=== PATIENT | male | born 1965 | race African-American/Black ===

== ENCOUNTER 2022-03-23 15:45 | Emergency (ER) | payer OTHER, SELFPAY ==
[2022-03-23 15:59] VITALS: BP 145/76; PULSE 91; RESP 18; TEMP 36.8; O2SAT 99; BMI 27.3
--- NOTE | 2022-03-23 16:04 | ED.MALEGU ---
HPI - Male Genitourinary General Stated complaint: excessive urination,bloody Source: patient and family Mode of arrival: ambulatory History of Present Illness HPI Narrative: 56 yo male with PMH of DM presents to the ED with increased urination Related Data Allergies Allergy/AdvReac Type Severity Reaction Status Date / Time lactose [LACTOSE] Allergy Severe BLOATING, Unverified 01/17/20 17:13 GAS
--- NOTE | 2022-03-23 16:16 | ED.GENADULT ---
HPI - General Adult General Chief complaint: General Medical Stated complaint: excessive urination,bloody Time Seen by Provider: 03/23/22 17:39 Related Data Previous Rx's Medication Instructions Recorded levofloxacin 500 mg tablet 500 mg PO ONCE #3 tabs 04/27/22 tamsulosin 0.4 mg capsule (Flomax) 0.4 mg PO BEDTIME 90 days #90 caps 04/27/22 amoxicillin 875 mg-potassium 1 tab PO BID 5 days #10 tabs 04/28/22 clavulanate 125 mg tablet Allergies Allergy/AdvReac Type Severity Reaction Status Date / Time lactose [LACTOSE] Allergy Severe BLOATING, Verified 04/27/22 11:34 GAS [facility] Past Medical History Medical History (Updated 04/27/22 @ 19:53 by MICHELLE Dominguez) DM type 2 (diabetes mellitus, type 2) Nocturia Nocturia associated with benign prostatic hyperplasia Physical Exam ED Vital Signs: Vital Signs - 24 hr 03/23/22 15:59 Temperature 98.2 F Pulse Rate 91 Respiratory Rate 18 Blood Pressure 145/76 H Pulse Oximetry 99 Oxygen Delivery Method Room Air BMI result Body Mass Index 27.3 Course Reevaluation(s) Reevaluation #1: 56 yo male with NIDDM presents c/o urinary frequency x several weeks. Concerned about his prostate. Labs ordered including PSA (patient request) Time: 16:17 Medical Decision Making Lab Data 03/23/22 16:17 03/23/22 16:17 Labs: Lab Results 03/23/22 03/23/22 03/23/22 Range/Units 16:06 16:17 16:17 WBC 4.9 (4.8-10.8) X10*3/uL RBC 5.47 (4.60-5.80) X10*6/uL Hgb 12.4 L (14.0-18.0) g/dl Hct 41.1 L (42.0-52.0) % MCV 75.1 L (80.0-98.0) fL MCH 22.7 L (27.0-33.0) pg MCHC 30.2 L (31.0-36.0) g/dl RDW 13.9 (11.0-16.0) % Plt Count 245 (160-400) X10*3/uL MPV 10.2 (9.4-12.4) fL Immature Gran % (Auto) 0.2 (0.0-0.4) % Neut % (Auto) 50.5 (45-73) % Lymph % (Auto) 39.6 (20-40) % [place] % (Auto) 7.7 (2-11) % Eos % (Auto) 1.4 (0-4) % Baso % (Auto) 0.6 (0-2) % Lymph # (Auto) 2.0 (1.2-4.9) X10*3/uL [place] # (Auto) 0.4 (0.1-1.2) X10*3/uL Eos # (Auto) 0.1 (0.0-0.4) X10*3/uL Baso # (Auto) 0.0 (0.0-0.2) X10*3/uL Abs Immat Gran (auto) 0.01 (0.00-0.03) X10*3/uL Absolute Neuts (auto) 2.5 (2.0-8.3) x10*3/uL Absolute Nucleated RBC 0.000 (0.0-0.012) X10*3/uL Nucleated RBC % (auto) 0.0 (0.0-0.2) /100WBC Sodium 140 (135-145) mmol/L Potassium 4.2 (3.3-5.1) mmol/L Chloride 104 (96-108) mmol/L Carbon Dioxide 29 (22-29) mmol/L Anion Gap 11 L (12-20) BUN 15 (9-16) mg/dL Creatinine 1.33 (0.5-1.4) mg/dL Estim Creat Clear Calc 64.4 Estimated GFR 55 POC Glucose 196 H (60-115) mg/dL Random Glucose 187 H (60-115) mg/dL Calcium 9.0 (8.4-10.2) mg/dL Prostate Specific Ag (<0.05-4.0) ng/mL Urine Color Urine Appearance Urine pH (5.0-9.0) Ur Specific [place] (1.005-1.025) Urine Protein (Neg-Trace) mg/dL Urine Glucose (UA) (Negative) mg/dL Urine Ketones (Negative) mg/dL Urine Blood (Negative) Urine Nitrite (Negative) Ur Leukocyte Esterase (Negative) 03/23/22 03/23/22 Range/Units 16:17 17:12 WBC (4.8-10.8) X10*3/uL RBC (4.60-5.80) X10*6/uL Hgb (14.0-18.0) g/dl Hct (42.0-52.0) % MCV (80.0-98.0) fL MCH (27.0-33.0) pg MCHC (31.0-36.0) g/dl RDW (11.0-16.0) % Plt Count (160-400) X10*3/uL MPV (9.4-12.4) fL Immature Gran % (Auto) (0.0-0.4) % Neut % (Auto) (45-73) % Lymph % (Auto) (20-40) % [place] % (Auto) (2-11) % Eos % (Auto) (0-4) % Baso % (Auto) (0-2) % Lymph # (Auto) (1.2-4.9) X10*3/uL [place] # (Auto) (0.1-1.2) X10*3/uL Eos # (Auto) (0.0-0.4) X10*3/uL Baso # (Auto) (0.0-0.2) X10*3/uL Abs Immat Gran (auto) (0.00-0.03) X10*3/uL Absolute Neuts (auto) (2.0-8.3) x10*3/uL Absolute Nucleated RBC (0.0-0.012) X10*3/uL Nucleated RBC % (auto) (0.0-0.2) /100WBC Sodium (135-145) mmol/L Potassium (3.3-5.1) mmol/L Chloride (96-108) mmol/L Carbon Dioxide (22-29) mmol/L Anion Gap (12-20) BUN (9-16) mg/dL Creatinine (0.5-1.4) mg/dL Estim Creat Clear Calc Estimated GFR POC Glucose (60-115) mg/dL Random Glucose (60-115) mg/dL Calcium (8.4-10.2) mg/dL Prostate Specific Ag 4.89 H (<0.05-4.0) ng/mL Urine Color Yellow Urine Appearance Clear Urine pH 6.0 (5.0-9.0) Ur Specific [place] 1.015 (1.005-1.025) Urine Protein Negative (Neg-Trace) mg/dL Urine Glucose (UA) 500 H (Negative) mg/dL Urine Ketones Negative (Negative) mg/dL Urine Blood Negative (Negative) Urine Nitrite Negative (Negative) Ur Leukocyte Esterase Negative (Negative) Discharge Plan Discharge Clinical Impression: Increased urinary frequency Patient Disposition: Home, Self-Care Instructions: Urinary Urgency and Frequency (DC) Additional Instructions: Please follow-up with urology take Flomax as directed return if you worse Prescriptions: No Action amoxicillin-pot clavulanate 875-125 mg tablet 1 tab PO BID 5 Days Qty: 10 0RF levofloxacin 500 mg tablet 500 mg PO ONCE Qty: 3 0RF Rx Instructions: Take day before, day of, and day after procedure tamsulosin [Flomax] 0.4 mg capsule 0.4 mg PO BEDTIME 90 Days Qty: 90 0RF Referrals: Josiah Fajardo MD [Physician] - 2 days Interventions: ED Discharge Assessment Last Done: 03/23/22 18:11 Discharge Date/Time: 03/23/22 18:14
[2022-03-23 16:23] LABS: Glucose, Whole Blood 196 mg/dL (60-115)
[2022-03-23 16:24] LABS: MANUAL DIFF FLAG NO
[2022-03-23 16:25] LABS: Basophils Percent Auto 0.6 % (0-2); Eosinophils Absolute Auto 0.1 X10*3/uL (0.0-0.4); Eosinophils Percent Auto 1.4 % (0-4); Hematocrit 41.1 % (42.0-52.0); Hemoglobin 12.4 g/dl (14.0-18.0); Imm Gran Abs Auto 0.01 X10*3/uL (0.00-0.03); Imm Gran Pct Auto 0.2 % (0.0-0.4); Lymphocytes Percent Auto 39.6 % (20-40); Mean Corpuscular HGB Conc 30.2 g/dl (31.0-36.0); Mean Corpuscular Hemoglobin 22.7 pg (27.0-33.0); Mean Corpuscular Volume 75.1 fL (80.0-98.0); Mean Platelet Volume 10.2 fL (9.4-12.4); Monocytes Absolute Auto 0.4 X10*3/uL (0.1-1.2); Monocytes Percent Auto 7.7 % (2-11); Neutrophils Absolute Auto 2.5 x10*3/uL (2.0-8.3); Neutrophils Percent Auto 50.5 % (45-73); Platelet Count 245 X10*3/uL (160-400); Red Blood Count 5.47 X10*6/uL (4.60-5.80); Red Cell Distribution Width 13.9 % (11.0-16.0); White Blood Count 4.9 X10*3/uL (4.8-10.8)
[2022-03-23 16:40] LABS: Anion Gap 11 (12-20); Blood Urea Nitrogen 15 mg/dL (9-16); Carbon Dioxide 29 mmol/L (22-29); Chloride 104 mmol/L (96-108); Creatinine Clr Calc Pharmacy 64.4; Estimated Glomerular Filt Rate 55; Glucose Random 187 mg/dL (60-115); Potassium 4.2 mmol/L (3.3-5.1); Sodium 140 mmol/L (135-145)
[2022-03-23 17:02] LABS: Prostate Specific Antigen 4.89 ng/mL (<0.05-4.0)
[2022-03-23 17:30] LABS: Appearance Urine Clear; Color Urine Yellow; Glucose Urine UA 500 mg/dL (Negative); Leukocyte Esterase Urine Negative (Negative); Nitrite Urine Negative (Negative); Specific Gravity - Urine 1.015 (1.005-1.025); Urine Blood Negative (Negative); Urine Ketones Negative (Negative); Urine Protein Negative (Neg-Trace)
--- NOTE | 2022-03-23 17:46 | ED.GENADULT ---
HPI - General Adult General Chief complaint: General Medical Stated complaint: excessive urination,bloody Time Seen by Provider: 03/23/22 17:39 Source: patient Mode of arrival: ambulatory Limitations: no limitations History of Present Illness HPI narrative: This is very pleasant 56 years old man presented to the emergency department complaining of frequency dysuria which has been going on for at least 2 weeks denies any fever chills abdominal pain he he has history of diabetes Onset (ago): week(s) (2) Radiation: non-radiation Severity: mild Pain Consistency: constant Relieving factors: none Exacerbating factors: none Related Data Previous Rx's Medication Instructions Recorded tamsulosin 0.4 mg capsule (Flomax) 0.4 mg PO BEDTIME #14 caps 03/23/22 Allergies Allergy/AdvReac Type Severity Reaction Status Date / Time lactose [LACTOSE] Allergy Severe BLOATING, Unverified 01/17/20 17:13 GAS Review of Systems Review of Systems: Yes all other systems are reviewed and are negative Cardiovascular: Cardiovascular: Reports no additional cardiovascular complaints Genitourinary: Genitourinary: Reports as per HPI and Reports nocturia [facility] Past Medical History [facility] Narrative: Type 2 diabetes Social History Social History Advance Directives: No Advance Directives Information Provided: No Physical Exam ED Vital Signs: Vital Signs - 24 hr 03/23/22 15:59 Temperature 98.2 F Pulse Rate 91 Respiratory Rate 18 Blood Pressure 145/76 H Pulse Oximetry 99 Oxygen Delivery Method Room Air BMI result Body Mass Index 27.3 Const Other: He looks well is no toxic-appearing General: cooperative, healthy appearing, comfortable, no acute distress, well developed, alert, awake and Physically active Nutritional Appearance: average body habitus and well nourished Orientation/consciousness: patient oriented x3 Limitations: no limitations HENMT Head: Yes normal to inspection Ears: external ears normal Face and sinus: Yes normal facial exam Mouth: Normal oral and palatal mucosa present Throat: Yes posterior oropharynx normal Neck Neck: Yes normal visual inspection and Yes full ROM Resp Effort & Inspection: normal respiratory effort Auscultation: clear to auscultation bilaterally Cardio Jugular venous distension: no JVD Rate: regular rate Rhythm: regular rhythm GI Inspection: Yes normal to inspection Palpation (GI): Soft to palpation, not firm and nontender Skin General skin exam: no rashes or lesions noted and elasticity normal Lesions: no lesions Rashes: no rashes Wounds: no wounds Neuro General: patient oriented x3 and gait normal Cranial nerves: Yes CN's II-XII intact bilaterally Medical Decision Making MDM Narrative Medical decision making narrative: This patient most likely has BPH, UA shows no infection no blood in the urine white count is normal renal function test is normal a start this patient on Flomax a referred the patient to Urology Lab Data Result diagrams: 03/23/22 16:17 03/23/22 16:17 Labs: Lab Results 03/23/22 03/23/22 03/23/22 Range/Units 16:06 16:17 16:17 WBC 4.9 (4.8-10.8) X10*3/uL RBC 5.47 (4.60-5.80) X10*6/uL Hgb 12.4 L (14.0-18.0) g/dl Hct 41.1 L (42.0-52.0) % MCV 75.1 L (80.0-98.0) fL MCH 22.7 L (27.0-33.0) pg MCHC 30.2 L (31.0-36.0) g/dl RDW 13.9 (11.0-16.0) % Plt Count 245 (160-400) X10*3/uL MPV 10.2 (9.4-12.4) fL Immature Gran % (Auto) 0.2 (0.0-0.4) % Neut % (Auto) 50.5 (45-73) % Lymph % (Auto) 39.6 (20-40) % [place] % (Auto) 7.7 (2-11) % Eos % (Auto) 1.4 (0-4) % Baso % (Auto) 0.6 (0-2) % Lymph # (Auto) 2.0 (1.2-4.9) X10*3/uL [place] # (Auto) 0.4 (0.1-1.2) X10*3/uL Eos # (Auto) 0.1 (0.0-0.4) X10*3/uL Baso # (Auto) 0.0 (0.0-0.2) X10*3/uL Abs Immat Gran (auto) 0.01 (0.00-0.03) X10*3/uL Absolute Neuts (auto) 2.5 (2.0-8.3) x10*3/uL Absolute Nucleated RBC 0.000 (0.0-0.012) X10*3/uL Nucleated RBC % (auto) 0.0 (0.0-0.2) /100WBC Sodium 140 (135-145) mmol/L Potassium 4.2 (3.3-5.1) mmol/L Chloride 104 (96-108) mmol/L Carbon Dioxide 29 (22-29) mmol/L Anion Gap 11 L (12-20) BUN 15 (9-16) mg/dL Creatinine 1.33 (0.5-1.4) mg/dL Estim Creat Clear Calc 64.4 Estimated GFR 55 POC Glucose 196 H (60-115) mg/dL Random Glucose 187 H (60-115) mg/dL Calcium 9.0 (8.4-10.2) mg/dL Prostate Specific Ag (<0.05-4.0) ng/mL Urine Color Urine Appearance Urine pH (5.0-9.0) Ur Specific [place] (1.005-1.025) Urine Protein (Neg-Trace) mg/dL Urine Glucose (UA) (Negative) mg/dL Urine Ketones (Negative) mg/dL Urine Blood (Negative) Urine Nitrite (Negative) Ur Leukocyte Esterase (Negative) 03/23/22 03/23/22 Range/Units 16:17 17:12 WBC (4.8-10.8) X10*3/uL RBC (4.60-5.80) X10*6/uL Hgb (14.0-18.0) g/dl Hct (42.0-52.0) % MCV (80.0-98.0) fL MCH (27.0-33.0) pg MCHC (31.0-36.0) g/dl RDW (11.0-16.0) % Plt Count (160-400) X10*3/uL MPV (9.4-12.4) fL Immature Gran % (Auto) (0.0-0.4) % Neut % (Auto) (45-73) % Lymph % (Auto) (20-40) % [place] % (Auto) (2-11) % Eos % (Auto) (0-4) % Baso % (Auto) (0-2) % Lymph # (Auto) (1.2-4.9) X10*3/uL [place] # (Auto) (0.1-1.2) X10*3/uL Eos # (Auto) (0.0-0.4) X10*3/uL Baso # (Auto) (0.0-0.2) X10*3/uL Abs Immat Gran (auto) (0.00-0.03) X10*3/uL Absolute Neuts (auto) (2.0-8.3) x10*3/uL Absolute Nucleated RBC (0.0-0.012) X10*3/uL Nucleated RBC % (auto) (0.0-0.2) /100WBC Sodium (135-145) mmol/L Potassium (3.3-5.1) mmol/L Chloride (96-108) mmol/L Carbon Dioxide (22-29) mmol/L Anion Gap (12-20) BUN (9-16) mg/dL Creatinine (0.5-1.4) mg/dL Estim Creat Clear Calc Estimated GFR POC Glucose (60-115) mg/dL Random Glucose (60-115) mg/dL Calcium (8.4-10.2) mg/dL Prostate Specific Ag 4.89 H (<0.05-4.0) ng/mL Urine Color Yellow Urine Appearance Clear Urine pH 6.0 (5.0-9.0) Ur Specific [place] 1.015 (1.005-1.025) Urine Protein Negative (Neg-Trace) mg/dL Urine Glucose (UA) 500 H (Negative) mg/dL Urine Ketones Negative (Negative) mg/dL Urine Blood Negative (Negative) Urine Nitrite Negative (Negative) Ur Leukocyte Esterase Negative (Negative) Discharge Plan Discharge Clinical Impression: Increased urinary frequency Patient Disposition: Home, Self-Care Instructions: Urinary Urgency and Frequency (DC) Additional Instructions: Please follow-up with urology take Flomax as directed return if you worse Prescriptions: New tamsulosin [Flomax] 0.4 mg capsule 0.4 mg PO BEDTIME Qty: 14 0RF Referrals: Josiah Fajardo MD [Physician] - 2 days Interventions: ED Discharge Assessment Last Done: 03/23/22 18:11 Discharge Date/Time: 03/23/22 18:14
== END 2022-03-23 18:14 | disposition home or self-care (01) ==
PROVIDERS: Emergency Medicine; Emergency Provider Emergency Medicine
DX: R35.0 Frequency of micturition (principal); Z79.899 Other long term (current) drug therapy
CPT/HCPCS: 36415; 80048; 81003; 82947; 84153; 85025; 99283

== ENCOUNTER 2022-04-27 11:30 | Outpatient (REF) | payer OTHER, SELFPAY | END 2022-04-27 11:31 | disposition home or self-care (01) | LOC: HO.LAB 11:30 | PROVIDERS: Visit Provider Nurse Practitioner Family | DX: R35.1 Nocturia (principal); R97.20 Elevated prostate specific antigen [PSA] | CPT/HCPCS: 51798 ==

== ENCOUNTER 2022-04-27 13:19 | Outpatient (REF) | payer OTHER, SELFPAY ==
[2022-04-27 13:50] LABS: Urine Cytology See Pathology rpt
[2022-04-27 15:49] LABS: PSA,Total (Free>4and<10) 4.08 ng/mL (0.00-4.00)
[2022-04-29 13:24] LABS: Free Prostate Spec Ag 0.7 ng/mL; Percent Free Prostate Spec Ag 21 % (calc) (>25); Prostate Specific Ag Total 3.3 ng/mL (< OR = 4.0)
== END 2022-04-27 13:20 | disposition home or self-care (01) ==
LOC: HO.10HDL 13:19
PROVIDERS: Visit Provider Nurse Practitioner Family
DX: Z12.5 Encounter for screening for malignant neoplasm of prostate (principal); R97.20 Elevated prostate specific antigen [PSA]; R31.29 Other microscopic hematuria; N39.0 Urinary tract infection, site not specified
CPT/HCPCS: 36415; 84153; 84154; 87086; 87147; 88112

== ENCOUNTER → 2022-06-24 11:31 | Outpatient (BNVA) | payer OTHER, SELFPAY | PROVIDERS: Visit Provider Urology | DX: Z13.89 Encounter for screening for other disorder (principal) ==

== ENCOUNTER 2023-04-19 09:45 | Outpatient (REF) | payer OTHER, SELFPAY ==
[2023-04-19 11:35] LABS: PSA,Total (Free>4and<10) 3.23 ng/mL (0.00-4.00)
== END 2023-04-19 09:46 | disposition home or self-care (01) ==
LOC: HO.LAB 09:45
PROVIDERS: PCP Internal Medicine; Visit Provider Nurse Practitioner Family
DX: Z12.5 Encounter for screening for malignant neoplasm of prostate (principal); R97.20 Elevated prostate specific antigen [PSA]
CPT/HCPCS: 36415; 84153

== ENCOUNTER 2023-04-28 10:22 | Outpatient (AMB) | payer OTHER, SELFPAY ==
--- NOTE | 2023-04-28 10:28 | A.OFFVIS_ITS ---
Intake Intake Visit Reasons: follow up/ PSA Intake Note: Patient is present for follow up urgency/nocturia/elevated psa Urology Medication: Tamsulosin, finasteride Blood Thinner: none PVR: 69ml's Red Lead Burner Required: No Accompanied by: Spouse Allergies lactose [LACTOSE] Allergy (Severe, Verified 04/28/23 18:32) BLOATING, GAS Medication List - Last Reconciled 04/28/23 by MICHELLE Dominguez finasteride 5 mg PO DAILY 90 days tamsulosin (Flomax) 0.4 mg PO BEDTIME 90 days HPI HPI Comments History of Present Illness Details Benito is a pleasant 57-year-old male patient who was accompanied by his at today's visit. He has a past medical history of type 2 diabetes. He presents to the office today for follow-up of his elevated PSA. In discussion with the patient today he reports since his last office visit here approximately 1 year ago he had been following up with a different urologist for a 2nd opinion and for insurance purposes. He reports having had prostate biopsy with Dr. Gambino that was negative and has since been on finasteride and Flomax for his BPH. He discusses noting lower urinary tract symptoms to be present if he misses a dose of his Flomax. He reports noting urinary urgency, frequency, and nocturia. He currently denies any bothersome urinary issues or concerns. PSAs are as follows 03/23--4.9 04/22--4.1 % free PSA 21% 04/23--3.2 Discussed at length potential causes for elevated PSA. Will obtain retroperitoneal ultrasound for further assessment evaluation. In office urinalysis results reviewed with the patient today. PVR 69ml's. JOHN offered however deferred. [facility] Medical History Nocturia Nocturia associated with benign prostatic hyperplasia DM type 2 (diabetes mellitus, type 2) Review of Systems Const All systems reviewed & are unremarkable except as noted in HPI and below Reports no additional complaints Eyes Reports no additional complaints ENT Reports no additional complaints Card Reports no additional complaints Resp Reports no additional complaints GI Reports no additional complaints Reports as per HPI Musc Reports no additional complaints Neuro Reports no additional complaints Psych Reports no additional complaints Endo Reports as per HPI Physical Exam Const General: cooperative, healthy appearing, comfortable, no acute distress, well developed, alert and awake Nutritional Appearance: well nourished Orientation/consciousness: patient oriented x3 Limitations: no limitations HEENT Head: Yes normal to inspection, Yes normocephalic and Yes atraumatic Ears: hearing grossly normal bilaterally Neck Neck: Yes normal visual inspection and Yes trachea midline Chest Chest palpation & inspection: normal inspection of the chest Resp Effort & Inspection: normal respiratory effort and able to speak in complete sentences Cardio Rate: regular rate GI Inspection: Yes normal to inspection General: Yes no CVA tenderness and Yes other (JOHN exam performed prostate firm ) Back/Spine/Pelvis Back: no CVA tenderness Neuro General: patient oriented x3 Psych Appearance: grossly normal and well kempt Mental Status: mental status grossly normal Speech and movement: Normal speech and movement present and Clear speech present Affect: normal affect Attitude: cooperative Thought process: Normal thought process present Thought content: Normal thought content present Insight: Fair insight present (Psych) Judgement: Fair judgement present (Psych) Office Procedures Post Void Residual Post Residual Void Post Void Residual (PVR): 69 [id number] Void Residual by ultrasound Results AMB Urinalysis, Automated UA Leukoctes 0 Levy/uL Last Edit by [facility] on 04/28/23 11:02 UA Nitrite Negative Last Edit by [facility] on 04/28/23 11:02 UA Urobilinogen 0.2 mg/dL Last Edit by [facility] on 04/28/23 11:02 UA Protein 15 mg/dL Last Edit by [facility] on 04/28/23 11:02 UA pH 7.0 Last Edit by [facility] on 04/28/23 11:02 UA Blood 0 Tim/uL Last Edit by [facility] on 04/28/23 11:02 UA Specific [place] 1.015 Last Edit by [facility] on 04/28/23 11:02 UA Ketone Negative Last Edit by [facility] on 04/28/23 11:02 UA Bilirubin 0 mg/dL Last Edit by [facility] on 04/28/23 11:02 UA Glucose 0 mg/dL Last Edit by [facility] on 04/28/23 11:02 Results Reviewed Results Reviewed: Laboratory Last Values Urine pH (Auto) 7.0 12/28/23 10:51 Specific [place] (Auto) 1.015 04/28/23 10:51 Urine Protein (Auto) 15 mg/dL 04/28/23 10:51 Glucose (UA)(Auto) 0 mg/dL 04/28/23 10:51 Urine Ketones (Auto) Negative 04/28/23 10:51 Urine Blood (Auto) 0 Tim/uL 04/28/23 10:51 Urine Nitrite (Auto) Negative 04/28/23 10:51 Urine Bilirubin (Auto) 0 mg/dL 04/28/23 10:51 Urine Urobilinogen (Auto) 0.2 mg/dL 04/28/23 10:51 Leukocyte Esterase (Auto) 0 Levy/uL 04/28/23 10:51 Assessment & Plan Assessment & Plan (1) Nocturia: Code(s): R35.1 - Nocturia (2) Elevated PSA: Code(s): R97.20 - Elevated prostate specific antigen [PSA] Plan In office urinalysis results reviewed with the patient today; as noted above. PVR 69 mL. Discussed at length potential causes for elevated PSA Will obtain retroperitoneal ultrasound for further assessment evaluation. Continue finasteride and Flomax as discussed and prescribed. Medical release form signed; will attempt to obtain previous urology records for continuity of care Patient currently denies any bothersome urinary issues or concerns. Discussed possible near future in office cystoscopy for further assessment evaluation. Discussed limiting fluids 2-3 hours prior to bed to assist with decreasing episodes of nocturia. Discussed and stressed the importance of managing diabetes for improvement in lower urinary tract symptoms as well as overall health and well-being. Follow-up in 4-6 weeks with imaging to be completed prior; or sooner with any issues, concerns, and or questions. Orders: Orders AMB Urinalysis Automated Today Z13.9 - Encounter for screening, unspecified US retroperitoneal comp Today R35.1 - Nocturia, R97.20 - Elevated prostate specific antigen [PSA] AMB Post Void Residual by ultrasound Today R35.1 - Nocturia Medications: New finasteride 5 mg PO DAILY 90 days 90 tabs 1RF Refilled tamsulosin (Flomax) 0.4 mg PO BEDTIME 90 days 90 caps 0RF Patient Instructions: The patient had an opportunity to ask questions regarding the treatment plan. All questions were answered. Physical exam, labs, and imaging were discussed and reviewed in detail. As well as risks, benefits, and discussion of treatment choices. No major barriers to understanding were identified. The patient expressed understanding and agreement with the above treatment plan. The patient was made aware they should contact our office by phone for worsening of their current condition, the appearance of new symptoms, or with any questions or concerns. Compliance is encouraged with any medications and follow up testing that is ordered. It is a privilege to be allowed the opportunity to participate in? your urological care.? Again, if you have any questions or concerns If you have any questions or concerns please do not hesitate to contact me. The office is [phone]. This note is constructed using voice recognition software. While every effort has been made to ensure accuracy manager printing errors may have been included. Yours sincerely, MICHELLE Dominguez Coding Level of Care Code Est Pt Level 3 (32950) Diagnoses Nocturia R35.1 Elevated PSA R97.20 CPT Codes Post Residual Void - PVR CPT Code: 13339-Jqck Void Residual by ultrasound ([id number])
== END 2023-04-28 11:13 | disposition home or self-care (01) ==
PROVIDERS: Visit Provider Nurse Practitioner Family
DX: R35.1 Nocturia (principal); R97.20 Elevated prostate specific antigen [PSA]; Z13.9 Encounter for screening, unspecified
CPT/HCPCS: 99213

== ENCOUNTER → 2023-04-28 10:22 | Outpatient (BNVA) | payer OTHER, SELFPAY | PROVIDERS: Visit Provider Nurse Practitioner Family | DX: R97.20 Elevated prostate specific antigen [PSA] (principal); R35.1 Nocturia; E11.9 Type 2 diabetes mellitus without complications | CPT/HCPCS: 51798; 81003 ==

== ENCOUNTER 2023-06-07 08:32 | Outpatient (REF) | payer OTHER, SELFPAY ==
--- NOTE | ~2023-06-07 | US_ITS ---
EXAMINATION: US RETROPERITONEAL COMPLETE (RENAL) CLINICAL INFORMATION: Nocturia. COMPARISON: None available. TECHNIQUE: Real-time imaging of the kidneys and bladder. FINDINGS: RIGHT KIDNEY: 11.9 x 4.4 x 5.0 cm (SAG x AP x TRV). The kidney is normal in size, contour, and echogenicity. Renal cortical thickness is normal. No renal calculi. There is mild pelviectasis, without chance hydronephrosis. At the interpolar aspect, a 9 mm benign, simple cyst is seen. At the lower pole, a 4.6 cm benign, simple cyst is seen. These require no imaging follow-up. LEFT KIDNEY: 12.6 x 7.2 x 5.9 cm (SAG x AP x TRV). The kidney is normal in size, contour, and echogenicity. Renal cortical thickness is normal. No renal calculi or hydronephrosis. At the interpolar aspect, a 2.7 cm benign, simple cyst is seen. This requires no imaging follow-up. BLADDER: Well distended and normal. Bilateral ureteral jets are demonstrated. Prevoid bladder volume is 201 mL. Postvoid bladder volume is 83 mL. OTHER: Prostate dimensions are 7.3 x 5.3 x 4.8 cm (volume 97.0 mL). A 3.2 x 3.6 x 2.5 prostate nodule is suspected. US/US retroperitoneal comp IMPRESSION: 1. Unremarkable ultrasound appearance of the kidneys. 2. There is prostatomegaly. 3. There is a borderline increased postvoid residual volume.
== END 2023-06-07 08:33 | disposition home or self-care (01) ==
LOC: HO.HMGCX 08:32
PROVIDERS: Visit Provider Nurse Practitioner Family
DX: R35.1 Nocturia (principal); R97.20 Elevated prostate specific antigen [PSA]
CPT/HCPCS: 76770

== ENCOUNTER 2023-06-14 10:17 | Outpatient (AMB) | payer OTHER, SELFPAY ==
--- NOTE | 2023-06-14 10:32 | MHC.OFFVIS ---
Intake Intake Visit Reasons: Follow up US(set) Intake Note: Patient presents for follow up for Nocturia and Elevated PSA Urology Medications: finasteride, tamsulosin Blood thinner: none PVR: 21 Senior Research Fellow Required: No Accompanied by: Allergies lactose [LACTOSE] Allergy (Severe, Verified 06/14/23 11:45) BLOATING, GAS Medication List - Last Reconciled 06/14/23 by ANTONY Dominguez- finasteride 5 mg PO DAILY 90 days lovastatin 40 mg PO BEDTIME metformin 500 mg PO BID tamsulosin (Flomax) 0.4 mg PO BEDTIME 90 days HPI HPI Comments History of Present Illness Details Benito is a pleasant 57-year-old male patient who was accompanied by his at today's visit. He has a past medical history of type 2 diabetes. He presents to the office today for follow-up of his elevated PSA. Of note, patient was seen approximately 6 weeks ago at which time a retroperitoneal ultrasound was ordered for further assessment evaluation. These results reviewed with the patient today. Right kidney with no calculi. At the interpolar aspect, a 9 mm benign, simple cyst is seen. At the lower pole, a 4.6 cm benign, simple cyst is seen. These require no imaging follow-up per radiology report. Left kidney with no calculi, and or hydronephrosis. At the interpolar aspect, a 2.7 cm benign, simple cyst is seen. This requires no imaging follow-up per radiology report. The bladder is well distended and normal. Bilateral ureteral jets are demonstrated. Pre void bladder volume is approximately 200 mL postvoid bladder volume is approximately 80 mL. There is prostatomegaly. In discussion with the patient today reports to be doing and feeling well. He reports compliance with finasteride and Flomax as prescribed. He reports having increased his Flomax to 0.8 mg daily and feels he is happy with his current voiding parameters. He has a history of having had prostate biopsy with Dr. Gambino that was negative and has since been on finasteride and Flomax for his BPH. He discusses noting lower urinary tract symptoms to be present if he misses a dose of his Flomax. He reports noting urinary urgency, frequency, and nocturia however feels increase in Flomax has significantly improved these lower urinary tract symptoms. He currently denies any bothersome urinary issues or concerns. PSAs are as follows 03/23--4.9 04/22--4.1 % free PSA 21% 04/23--3.2 Discussed at length potential causes for elevated PSA. Discussed surveillance monitoring of elevated PSA at length. In office urinalysis results reviewed with the patient today. PVR 21ml's. [facility] Medical History Nocturia Nocturia associated with benign prostatic hyperplasia DM type 2 (diabetes mellitus, type 2) Review of Systems Const All systems reviewed & are unremarkable except as noted in HPI and below Reports no additional complaints Eyes Reports no additional complaints ENT Reports no additional complaints Card Reports no additional complaints Resp Reports no additional complaints GI Reports no additional complaints Reports as per HPI Musc Reports no additional complaints Neuro Reports no additional complaints Psych Reports no additional complaints Endo Reports as per HPI Physical Exam Const General: cooperative, healthy appearing, comfortable, no acute distress, well developed, alert and awake Nutritional Appearance: well nourished Orientation/consciousness: patient oriented x3 Limitations: no limitations HEENT Head: Yes normal to inspection, Yes normocephalic and Yes atraumatic Ears: hearing grossly normal bilaterally Neck Neck: Yes normal visual inspection and Yes trachea midline Chest Chest palpation & inspection: normal inspection of the chest Resp Effort & Inspection: normal respiratory effort and able to speak in complete sentences Cardio Rate: regular rate GI Inspection: Yes normal to inspection General: Yes no CVA tenderness and Yes other (JOHN exam performed prostate firm ) Back/Spine/Pelvis Back: no CVA tenderness Neuro General: patient oriented x3 Psych Appearance: grossly normal and well kempt Mental Status: mental status grossly normal Speech and movement: Normal speech and movement present and Clear speech present Affect: normal affect Attitude: cooperative Thought process: Normal thought process present Thought content: Normal thought content present Insight: Fair insight present (Psych) Judgement: Fair judgement present (Psych) Office Procedures Post Void Residual Post Residual Void Post Void Residual (PVR): 21 [id number] Void Residual by ultrasound Results AMB Urinalysis, Automated UA Leukoctes 0 Levy/uL Last Edit by Johanna Negro CMA on 06/14/23 10:50 UA Nitrite Negative Last Edit by Johanna Negro CMA on 06/14/23 10:50 UA Urobilinogen 0.2 mg/dL Last Edit by [facility], [facility] on 06/14/23 10:50 UA Protein 15 mg/dL Last Edit by [facility], [facility] on 06/14/23 10:50 UA pH 8.0 Last Edit by [facility], [facility] on 06/14/23 10:50 UA Blood 0 Tim/uL Last Edit by [facility], [facility] on 06/14/23 10:50 UA Specific [place] 1.015 Last Edit by [facility], [facility] on 06/14/23 10:50 UA Ketone Negative Last Edit by [facility], [facility] on 06/14/23 10:50 UA Bilirubin 0 mg/dL Last Edit by [facility], [facility] on 06/14/23 10:50 UA Glucose 0 mg/dL Last Edit by [facility], [facility] on 06/14/23 10:50 Results Reviewed Results Reviewed: Laboratory Last Values Urine pH (Auto) 8.0 06/14/23 10:34 Specific [place] (Auto) 1.015 06/14/23 10:34 Urine Protein (Auto) 15 mg/dL 06/14/23 10:34 Glucose (UA)(Auto) 0 mg/dL 06/14/23 10:34 Urine Ketones (Auto) Negative 06/14/23 10:34 Urine Blood (Auto) 0 Tim/uL 06/14/23 10:34 Urine Nitrite (Auto) Negative 06/14/23 10:34 Urine Bilirubin (Auto) 0 mg/dL 06/14/23 10:34 Urine Urobilinogen (Auto) 0.2 mg/dL 06/14/23 10:34 Leukocyte Esterase (Auto) 0 Levy/uL 06/14/23 10:34 Date of Service: 06/07/23 EXAMINATION: US RETROPERITONEAL COMPLETE (RENAL) FINDINGS: RIGHT KIDNEY: 11.9 x 4.4 x 5.0 cm (SAG x AP x TRV). The kidney is normal in size, contour, and echogenicity. Renal cortical thickness is normal. No renal calculi. There is mild pelviectasis, without chance hydronephrosis. At the interpolar aspect, a 9 mm benign, simple cyst is seen. At the lower pole, a 4.6 cm benign, simple cyst is seen. These require no imaging follow-up. LEFT KIDNEY: 12.6 x 7.2 x 5.9 cm (SAG x AP x TRV). The kidney is normal in size, contour, and echogenicity. Renal cortical thickness is normal. No renal calculi or hydronephrosis. At the interpolar aspect, a 2.7 cm benign, simple cyst is seen. This requires no imaging follow-up. BLADDER: Well distended and normal. Bilateral ureteral jets are demonstrated. Prevoid bladder volume is 201 mL. Postvoid bladder volume is 83 mL. OTHER: Prostate dimensions are 7.3 x 5.3 x 4.8 cm (volume 97.0 mL). A 3.2 x 3.6 x 2.5 prostate nodule is suspected. IMPRESSION: 1. Unremarkable ultrasound appearance of the kidneys. 2. There is prostatomegaly. 3. There is a borderline increased postvoid residual volume. Assessment & Plan Assessment & Plan (1) Elevated PSA: Code(s): R97.20 - Elevated prostate specific antigen [PSA] (2) Nocturia: Code(s): R35.1 - Nocturia (3) Renal cyst: Code(s): N28.1 - Cyst of kidney, acquired Plan In office urinalysis results reviewed with the patient today; as noted above. PVR 21 mL. Recent retroperitoneal ultrasound results reviewed with the patient his today. Continue Flomax and finasteride as prescribed; refills provided. Patient reports be happy with current voiding parameters on 0.8 mg of Flomax daily as well as finasteride. Discussed at length potential for near future in office cystoscopy for further assessment evaluation if symptoms arise and or worsen. He currently denies any bothersome urinary issues or concerns. Will obtain PSA in 4 months. Follow-up in 4 months with lab to be completed prior; or sooner with any issues, concerns, and or questions. Orders: Orders AMB Urinalysis Automated Today R33.9 - Retention of urine, unspecified AMB Post Void Residual by ultrasound Today R33.9 - Retention of urine, unspecified Medications: Changed From tamsulosin (Flomax) 0.4 mg PO BEDTIME 90 days 90 caps 0RF To tamsulosin (Flomax) This is an increase in dosage 0.8 mg (2 x 0.4 mg) PO BEDTIME 180 caps 2RF 90 days Patient Instructions: The patient had an opportunity to ask questions regarding the treatment plan. All questions were answered. Physical exam, labs, and imaging were discussed and reviewed in detail. As well as risks, benefits, and discussion of treatment choices. No major barriers to understanding were identified. The patient expressed understanding and agreement with the above treatment plan. The patient was made aware they should contact our office by phone for worsening of their current condition, the appearance of new symptoms, or with any questions or concerns. Compliance is encouraged with any medications and follow up testing that is ordered. It is a privilege to be allowed the opportunity to participate in? your urological care.? Again, if you have any questions or concerns If you have any questions or concerns please do not hesitate to contact me. The office is [phone]. This note is constructed using voice recognition software. While every effort has been made to ensure accuracy meter mechanic errors may have been included. Yours sincerely, MICHELLE Dominguez Coding Level of Care Code Est Pt Level 3 (17016) Diagnoses Elevated PSA R97.20 Nocturia R35.1 Renal cyst N28.1 CPT Codes Post Residual Void - PVR CPT Code: 71584-Woxj Void Residual by ultrasound ([id number])
== END 2023-06-14 11:16 | disposition home or self-care (01) ==
PROVIDERS: Visit Provider Nurse Practitioner Family
DX: R97.20 Elevated prostate specific antigen [PSA] (principal); R35.1 Nocturia; N28.1 Cyst of kidney, acquired; R33.9 Retention of urine, unspecified
CPT/HCPCS: 99213

== ENCOUNTER → 2023-06-14 10:17 | Outpatient (BNVA) | payer OTHER, SELFPAY | PROVIDERS: Visit Provider Nurse Practitioner Family | DX: R97.20 Elevated prostate specific antigen [PSA] (principal); R35.1 Nocturia; R33.9 Retention of urine, unspecified; N28.1 Cyst of kidney, acquired; Z79.899 Other long term (current) drug therapy | CPT/HCPCS: 51798; 81003 ==

== ENCOUNTER 2023-10-10 13:46 | Outpatient (REF) | payer OTHER, SELFPAY ==
[2023-10-10 15:17] LABS: PSA,Total (Free>4and<10) 3.31 ng/mL (0.00-4.00)
== END 2023-10-10 13:47 | disposition home or self-care (01) ==
LOC: HO.LAB 13:46
PROVIDERS: Visit Provider Nurse Practitioner Family
DX: R97.20 Elevated prostate specific antigen [PSA] (principal); Z12.5 Encounter for screening for malignant neoplasm of prostate
CPT/HCPCS: 36415; 84153

== ENCOUNTER 2023-12-30 12:53 | Outpatient (AMB) | payer OTHER, SELFPAY ==
--- NOTE | 2023-12-30 13:01 | MHC.OFFVIS ---
Intake Visit Reasons: follow up/PSA Intake Note: Patient presents for follow up for Nocturia and Elevated PSA PSA: 3.31 Urology Medications: finasteride, tamsulosin Blood thinner: none PVR: 15ml's Helpdesk Specialist Required: No Accompanied by: Allergies lactose [LACTOSE] Allergy (Severe, Verified 01/01/24 18:25) BLOATING, GAS Medication List - Last Reconciled 01/01/24 by ANTONY Dominguez- finasteride 5 mg PO DAILY 90 days lovastatin 40 mg PO BEDTIME metformin 500 mg PO BID tamsulosin (Flomax) 0.8 mg (2 x 0.4 mg) PO BEDTIME 90 days HPI Comments Details: Benito is a pleasant 58-year-old male patient who was accompanied by his at today's visit. He has a past medical history of type 2 diabetes. He presents to the office today for follow-up of his elevated PSA. In discussion with the patient today reports to be doing and feeling well. He reports since his last office visit here approximately 6 months ago he has had no bothersome urinary issues or concerns. He reports compliance with finasteride and Flomax as prescribed. Previous workup has included a retroperitoneal ultrasound 06/25 that notes right kidney with no calculi. At the interpolar aspect, a 9 mm benign, simple cyst is seen. At the lower pole, a 4.6 cm benign, simple cyst is seen. These require no imaging follow-up per radiology report. Left kidney with no calculi, and or hydronephrosis. At the interpolar aspect, a 2.7 cm benign, simple cyst is seen. This requires no imaging follow-up per radiology report. The bladder is well distended and normal. Bilateral ureteral jets are demonstrated. Pre void bladder volume is approximately 200 mL postvoid bladder volume is approximately 80 mL. There is prostatomegaly. When asked he currently denies any bothersome urinary issues or concerns. He denies urinary urgency, urinary frequency, incontinence, nocturia, hematuria, dysuria, foul smelling urine, changes to urinary stream, flank pain, fever, and or chills. He is happy with his current voiding parameters on as for mentioned urological medications. He reports a previous history of a prostate biopsy with Dr. Gabmino that was negative. PSAs are as follows 03/23 4.9, 04/22 4.1 % free PSA 21%, 04/23 3.2, 10/23 3.3 Discussed at length potential causes for elevated PSA. Discussed surveillance monitoring of elevated PSA at length. In office urinalysis results reviewed with the patient today. PVR 15ml's. [facility] Medical History Nocturia Nocturia associated with benign prostatic hyperplasia DM type 2 (diabetes mellitus, type 2) Review of Systems Const All systems reviewed & are unremarkable except as noted in HPI and below Reports no additional complaints Eyes Reports no additional complaints ENT Reports no additional complaints Card Reports no additional complaints Resp Reports no additional complaints GI Reports no additional complaints Reports as per HPI Musc Reports no additional complaints Neuro Reports no additional complaints Psych Reports no additional complaints Endo Reports as per HPI Physical Exam Const General: cooperative, healthy appearing, comfortable, no acute distress, well developed, alert and awake Nutritional Appearance: well nourished Orientation/consciousness: patient oriented x3 Limitations: no limitations HEENT Head: Yes normal to inspection, Yes normocephalic and Yes atraumatic Ears: hearing grossly normal bilaterally Neck Neck: Yes normal visual inspection and Yes trachea midline Chest Chest palpation & inspection: normal inspection of the chest Resp Effort & Inspection: normal respiratory effort and able to speak in complete sentences Cardio Rate: regular rate GI Inspection: Yes normal to inspection General: Yes no CVA tenderness and Yes other (JOHN exam performed prostate firm ) Back/Spine/Pelvis Back: no CVA tenderness Neuro General: patient oriented x3 Psych Appearance: grossly normal and well kempt Mental Status: mental status grossly normal Speech and movement: Normal speech and movement present and Clear speech present Affect: normal affect Attitude: cooperative Thought process: Normal thought process present Thought content: Normal thought content present Insight: Fair insight present (Psych) Judgement: Fair judgement present (Psych) Office Procedures Post Void Residual Post Residual Void Post Void Residual (PVR): 15 [id number] Void Residual by ultrasound Results AMB Urinalysis, Automated UA Leukoctes 0 Levy/uL Last Edit by Graciela Willis on 12/30/23 13:14 UA Nitrite Last Edit by Graciela Willis on 12/30/23 13:14 UA Urobilinogen 0.2 mg/dL Last Edit by Graciela Willis on 12/30/23 13:14 UA Protein 0 mg/dL Last Edit by Graciela Alanacarla on 12/30/23 13:14 UA pH 6.0 Last Edit by Graciela Willis on 12/30/23 13:14 UA Blood 0 Tim/uL Last Edit by Graciela Willis on 12/30/23 13:14 UA Specific [place] 1.025 Last Edit by Graciela Willis on 12/30/23 13:14 UA Ketone Last Edit by Graciela Willis on 12/30/23 13:14 UA Bilirubin 0 mg/dL Last Edit by Graciela Willis on 12/30/23 13:14 UA Glucose 0 mg/dL Last Edit by Graciela Willis on 12/30/23 13:14 Results Reviewed Results Reviewed: Laboratory Last Values Urine pH (Auto) 6.0 12/30/23 13:06 Specific [place] (Auto) 1.025 12/30/23 13:06 Urine Protein (Auto) 0 mg/dL 12/30/23 13:06 Glucose (UA)(Auto) 0 mg/dL 12/30/23 13:06 Urine Blood (Auto) 0 Tim/uL 12/30/23 13:06 Urine Bilirubin (Auto) 0 mg/dL 12/30/23 13:06 Urine Urobilinogen (Auto) 0.2 mg/dL 12/30/23 13:06 Leukocyte Esterase (Auto) 0 Levy/uL 12/30/23 13:06 Assessment & Plan Assessment & Plan (1) Elevated PSA: Code(s): R97.20 - Elevated prostate specific antigen [PSA] Category: Medical (2) Nocturia: Code(s): R35.1 - Nocturia Category: Medical (3) Renal cyst: Code(s): N28.1 - Cyst of kidney, acquired Category: Medical Plan In office urinalysis results reviewed with the patient today; as noted above. PVR 15 mL. Recent PSA results reviewed with the patient today. Continue Flomax and finasteride as prescribed; refills provided. Patient reports be happy with current voiding parameters on 0.8 mg of Flomax daily as well as finasteride. Discussed at length potential for near future in office cystoscopy for further assessment evaluation if symptoms arise and or worsen. He currently denies any bothersome urinary issues or concerns. Will obtain PSA in 4 months. Follow-up in 4 months with lab to be completed prior; or sooner with any issues, concerns, and or questions. Orders: Orders AMB Urinalysis Automated 12/30/23 Z13.9 - Encounter for screening, unspecified Prostate Specific Antigen 4 Months R97.20 - Elevated prostate specific antigen [PSA] AMB Post Void Residual by ultrasound 12/30/23 R35.1 - Nocturia Medications: Refilled finasteride 5 mg PO DAILY 90 days 90 tabs 1RF tamsulosin (Flomax) This is an increase in dosage 0.8 mg (2 x 0.4 mg) PO BEDTIME 90 days 180 caps 2RF Patient Instructions: The patient had an opportunity to ask questions regarding the treatment plan. All questions were answered. Physical exam, labs, and imaging were discussed and reviewed in detail. As well as risks, benefits, and discussion of treatment choices. No major barriers to understanding were identified. The patient expressed understanding and agreement with the above treatment plan. The patient was made aware they should contact our office by phone for worsening of their current condition, the appearance of new symptoms, or with any questions or concerns. Compliance is encouraged with any medications and follow up testing that is ordered. It is a privilege to be allowed the opportunity to participate in? your urological care.? Again, if you have any questions or concerns If you have any questions or concerns please do not hesitate to contact me. The office is [phone]. This note is constructed using voice recognition software. While every effort has been made to ensure accuracy line assigner errors may have been included. Yours sincerely, MICHELLE Dominguez Coding Level of Care Code Est Pt Level 4 (83532) Diagnoses Elevated PSA R97.20 Nocturia R35.1 Renal cyst N28.1 CPT Codes Post Residual Void - PVR CPT Code: 75990-Gdfc Void Residual by ultrasound ([id number]) Time Spent (min) 35
== END 2023-12-30 13:45 | disposition home or self-care (01) ==
PROVIDERS: Visit Provider Nurse Practitioner Family
DX: R97.20 Elevated prostate specific antigen [PSA] (principal); R35.1 Nocturia; N28.1 Cyst of kidney, acquired
CPT/HCPCS: 99214

== ENCOUNTER → 2023-12-30 12:53 | Outpatient (BNVA) | payer OTHER, SELFPAY | PROVIDERS: Visit Provider Nurse Practitioner Family | DX: R97.20 Elevated prostate specific antigen [PSA] (principal); R35.1 Nocturia; N28.1 Cyst of kidney, acquired; Z79.899 Other long term (current) drug therapy | CPT/HCPCS: 51798; 81003 ==

== ENCOUNTER 2024-03-26 10:34 | Outpatient (REF) | payer OTHER, SELFPAY ==
[2024-03-26 12:38] LABS: Prostate Specific Antigen 2.77 ng/mL (<0.05-4.0)
== END 2024-03-26 10:35 | disposition home or self-care (01) ==
LOC: HO.LAB 10:34
PROVIDERS: Visit Provider Nurse Practitioner Family
DX: R97.20 Elevated prostate specific antigen [PSA] (principal); Z12.5 Encounter for screening for malignant neoplasm of prostate
CPT/HCPCS: 36415; 84153

== ENCOUNTER 2024-03-28 13:51 | Outpatient (AMB) | payer OTHER, SELFPAY ==
--- NOTE | 2024-03-28 13:48 | A.OFFVIS_ITS ---
Intake Visit Reasons: 3-4 month follow up PSA Intake Note: Patient presents for follow up for Nocturia and Elevated PSA PSA: 2.77 Urology Medications: finasteride, tamsulosin Blood thinner: none PVR: 14ml's Lifestyle Director Required: No Accompanied by: Self / Same As Patient Allergies lactose [LACTOSE] Allergy (Severe, Verified 03/28/24 14:17) BLOATING, GAS Medication List - Last Reconciled 03/28/24 by GISSELLE Dominguez finasteride 5 mg PO DAILY 90 days lovastatin 40 mg PO BEDTIME metformin 500 mg PO BID tamsulosin (Flomax) 0.8 mg (2 x 0.4 mg) PO BEDTIME 90 days HPI Comments Details: Benito is a pleasant 58-year-old male patient. He has a past medical history of type 2 diabetes. He presents to the office today for follow-up of his elevated PSA. In discussion with the patient today reports to be doing and feeling well. He reports no bothersome urinary issues or concerns. Recent PSA results reviewed with the patient today as noted and trended below. When asked he reports compliance with finasteride and Flomax as prescribed. Previous workup has included a retroperitoneal ultrasound 06/25 that notes right kidney with no calculi. At the interpolar aspect, a 9 mm benign, simple cyst is seen. At the lower pole, a 4.6 cm benign, simple cyst is seen. These require no imaging follow-up per radiology report. Left kidney with no calculi, and or hydronephrosis. At the interpolar aspect, a 2.7 cm benign, simple cyst is seen. This requires no imaging follow-up per radiology report. The bladder is well distended and normal. Bilateral ureteral jets are demonstrated. Pre void bladder volume is approximately 200 mL postvoid bladder volume is approximately 80 mL. There is prostatomegaly. When asked he currently denies any bothersome urinary issues or concerns. He denies urinary urgency, urinary frequency, incontinence, nocturia, hematuria, dysuria, foul smelling urine, changes to urinary stream, flank pain, fever, and or chills. He is happy with his current voiding parameters on as for mentioned urological medications. He reports a previous history of a prostate biopsy with Dr. Gambino that was negative. PSAs are as follows 03/23 4.9, 04/22 4.1 % free PSA 21%, 04/23 3.2, 10/23 3.3, 03/25 2.8 Discussed at length potential causes for elevated PSA. We discussed decrease in PSA. Discussed surveillance monitoring of elevated PSA at length. In office urinalysis results reviewed with the patient today. PVR 14ml's. [facility] Medical History Nocturia Nocturia associated with benign prostatic hyperplasia DM type 2 (diabetes mellitus, type 2) Review of Systems Const All systems reviewed & are unremarkable except as noted in HPI and below Reports no additional complaints Eyes Reports no additional complaints ENT Reports no additional complaints Card Reports no additional complaints Resp Reports no additional complaints GI Reports no additional complaints Reports as per HPI Musc Reports no additional complaints Neuro Reports no additional complaints Psych Reports no additional complaints Endo Reports as per HPI Physical Exam Const General: cooperative, healthy appearing, comfortable, no acute distress, well developed, alert and awake Nutritional Appearance: well nourished Orientation/consciousness: patient oriented x3 Limitations: no limitations HEENT Head: Yes normal to inspection, Yes normocephalic and Yes atraumatic Ears: hearing grossly normal bilaterally Neck Neck: Yes normal visual inspection and Yes trachea midline Chest Chest palpation & inspection: normal inspection of the chest Resp Effort & Inspection: normal respiratory effort and able to speak in complete sentences Cardio Rate: regular rate GI Inspection: Yes normal to inspection General: Yes no CVA tenderness and Yes other (JOHN exam performed prostate firm ) Back/Spine/Pelvis Back: no CVA tenderness Neuro General: patient oriented x3 Psych Appearance: grossly normal and well kempt Mental Status: mental status grossly normal Speech and movement: Normal speech and movement present and Clear speech present Affect: normal affect Attitude: cooperative Thought process: Normal thought process present Thought content: Normal thought content present Insight: Fair insight present (Psych) Judgement: Fair judgement present (Psych) Office Procedures Post Void Residual Post Residual Void Post Void Residual (PVR): 14 58140-Xfjx Void Residual by ultrasound Results AMB Urinalysis, Automated UA Leukoctes 0 Levy/uL Last Edit by Graciela Willis on 03/28/24 14:12 UA Nitrite Last Edit by Graciela Willis on 03/28/24 14:12 UA Urobilinogen 0.2 mg/dL Last Edit by Graciela Willis on 03/28/24 14:12 UA Protein 15 mg/dL Last Edit by Graciela Willis on 03/28/24 14:12 UA pH 6.0 Last Edit by Graciela Willis on 03/28/24 14:12 UA Blood 0 Tim/uL Last Edit by Lumicelllucas Willis on 03/28/24 14:12 UA Specific [place] 1.020 Last Edit by Graciela Willis on 03/28/24 14:12 UA Ketone Last Edit by Graciela Willis on 03/28/24 14:12 UA Bilirubin 0 mg/dL Last Edit by Graciela Willis on 03/28/24 14:12 UA Glucose 0 mg/dL Last Edit by Lumicelllucas Willis on 03/28/24 14:12 Results Reviewed Results Reviewed: Laboratory Last Values Urine pH (Auto) 6.0 03/28/24 14:10 Specific [place] (Auto) 1.020 03/28/24 14:10 Urine Protein (Auto) 15 mg/dL 03/28/24 14:10 Glucose (UA)(Auto) 0 mg/dL 03/28/24 14:10 Urine Blood (Auto) 0 Tim/uL 03/28/24 14:10 Urine Bilirubin (Auto) 0 mg/dL 03/28/24 14:10 Urine Urobilinogen (Auto) 0.2 mg/dL 03/28/24 14:10 Leukocyte Esterase (Auto) 0 Levy/uL 03/28/24 14:10 Assessment & Plan Assessment & Plan (1) Elevated PSA: Code(s): R97.20 - Elevated prostate specific antigen [PSA] Category: Medical (2) Nocturia: Code(s): R35.1 - Nocturia Category: Medical (3) Renal cyst: Code(s): N28.1 - Cyst of kidney, acquired Category: Medical Plan In office urinalysis results reviewed with the patient today; as noted above. PVR 14 mL. Recent PSA results reviewed with the patient today. Continue Flomax and finasteride as prescribed; refills provided. Patient reports be happy with current voiding parameters on 0.8 mg of Flomax daily as well as finasteride. He currently denies any bothersome urinary issues or concerns. Will obtain PSA in 6 months. Follow-up in 6 months with lab to be completed prior; or sooner with any issues, concerns, and or questions. Orders: Orders AMB Post Void Residual by ultrasound Today R35.1 - Nocturia AMB Urinalysis Automated Today Z13.9 - Encounter for screening, unspecified Prostate Specific Antigen 6 Months R97.20 - Elevated prostate specific antigen [PSA] Patient Instructions: The patient had an opportunity to ask questions regarding the treatment plan. All questions were answered. Physical exam, labs, and imaging were discussed and reviewed in detail. As well as risks, benefits, and discussion of treatment choices. No major barriers to understanding were identified. The patient expressed understanding and agreement with the above treatment plan. The patient was made aware they should contact our office by phone for worsening of their current condition, the appearance of new symptoms, or with any questions or concerns. Compliance is encouraged with any medications and follow up testing that is ordered. It is a privilege to be allowed the opportunity to participate in? your urological care.? Again, if you have any questions or concerns If you have any questions or concerns please do not hesitate to contact me. The office is [phone]. This note is constructed using voice recognition software. While every effort has been made to ensure accuracy sheriff detective errors may have been included. Yours sincerely, MICHELLE Dominguez Coding Level of Care Code Est Pt Level 3 (74736) Diagnoses Elevated PSA R97.20 Nocturia R35.1 Renal cyst N28.1 CPT Codes Post Residual Void - PVR CPT Code: 15795-Ziic Void Residual by ultrasound ([id number])
== END 2024-03-28 14:23 | disposition home or self-care (01) ==
LOC: HO.HUSH 13:51
PROVIDERS: Visit Provider Nurse Practitioner Family
DX: R97.20 Elevated prostate specific antigen [PSA] (principal); R35.1 Nocturia; N28.1 Cyst of kidney, acquired; Z13.9 Encounter for screening, unspecified
CPT/HCPCS: 99213

== ENCOUNTER → 2024-03-28 13:51 | Outpatient (BNVA) | payer OTHER, SELFPAY | PROVIDERS: Visit Provider Nurse Practitioner Family | DX: R97.20 Elevated prostate specific antigen [PSA] (principal); R35.1 Nocturia; N28.1 Cyst of kidney, acquired; Z79.899 Other long term (current) drug therapy | CPT/HCPCS: 51798; 81003 ==

== ENCOUNTER 2024-09-21 16:34 | Outpatient (REF) | payer SELFPAY ==
[2024-09-21 17:53] LABS: Prostate Specific Antigen 2.82 ng/mL (<0.05-4.0)
== END 2024-09-21 16:35 | disposition home or self-care (01) ==
LOC: HO.LAB 16:34
PROVIDERS: Visit Provider Nurse Practitioner Family
DX: R97.20 Elevated prostate specific antigen [PSA] (principal); Z12.5 Encounter for screening for malignant neoplasm of prostate
CPT/HCPCS: 36415; 84153

== ENCOUNTER 2024-09-27 10:27 | Outpatient (AMB) | payer SELFPAY ==
--- NOTE | 2024-09-27 10:29 | A.OFFVIS_ITS ---
Intake Visit Reasons: 6m/PSA/PVR Intake Note: pt here today for: 6m/PSA/PVR uro meds:Tamsulosin blood thinner:aspirin prn [employer] Reporter Required: No Allergies lactose [LACTOSE] Allergy (Severe, Verified 09/27/24 10:57) BLOATING, GAS Medication List - Last Reconciled 09/27/24 by ANTONY Dominguez- finasteride 5 mg PO DAILY 90 days lovastatin 40 mg PO BEDTIME metformin 500 mg PO BID tamsulosin (Flomax) 0.4 mg PO BEDTIME 90 days HPI Comments Details: Benito is a pleasant 58-year-old male patient. He has a past medical history of type 2 diabetes. He presents to the office today for follow-up of his elevated PSA. In discussion with the patient today reports to be doing and feeling well. He reports no bothersome urinary issues or concerns. Recent PSA results reviewed with the patient today as noted and trended below. When asked he reports compliance with finasteride and Flomax as prescribed. He reports he has been able to decrease his Flomax to once per day. Previous workup has included a retroperitoneal ultrasound 06/25 that notes right kidney with no calculi. At the interpolar aspect, a 9 mm benign, simple cyst is seen. At the lower pole, a 4.6 cm benign, simple cyst is seen. These require no imaging follow-up per radiology report. Left kidney with no calculi, and or hydronephrosis. At the interpolar aspect, a 2.7 cm benign, simple cyst is seen. This requires no imaging follow-up per radiology report. The bladder is well distended and normal. Bilateral ureteral jets are demonstrated. Pre void bladder volume is approximately 200 mL postvoid bladder volume is approximately 80 mL. There is prostatomegaly. When asked he currently denies any bothersome urinary issues or concerns. He denies urinary urgency, urinary frequency, incontinence, nocturia, hematuria, dysuria, foul smelling urine, changes to urinary stream, flank pain, fever, and or chills. He is happy with his current voiding parameters on as for mentioned urological medications. He reports a previous history of a prostate biopsy with Dr. Gambino that was negative. PSAs are as follows 03/23 4.9, 04/22 4.1 % free PSA 21%, 04/23 3.2, 10/23 3.3, 03/25 2.8, 09/23 2.8 Unable to obtain urine for urinalysis as patient unable to void. However PVR 77ml's. All questions were answered. He otherwise offers no other issues or concerns at this time. [facility] Medical History Nocturia Nocturia associated with benign prostatic hyperplasia DM type 2 (diabetes mellitus, type 2) Review of Systems Const All systems reviewed & are unremarkable except as noted in HPI and below Reports no additional complaints Eyes Reports no additional complaints ENT Reports no additional complaints Card Reports no additional complaints Resp Reports no additional complaints GI Reports no additional complaints Reports as per HPI Musc Reports no additional complaints Neuro Reports no additional complaints Psych Reports no additional complaints Endo Reports as per HPI Physical Exam Const General: cooperative, healthy appearing, comfortable, no acute distress, well developed, alert and awake Nutritional Appearance: well nourished Orientation/consciousness: patient oriented x3 Limitations: no limitations HEENT Head: Yes normal to inspection, Yes normocephalic and Yes atraumatic Ears: hearing grossly normal bilaterally Neck Neck: Yes normal visual inspection and Yes trachea midline Chest Chest palpation & inspection: normal inspection of the chest Resp Effort & Inspection: normal respiratory effort and able to speak in complete sentences Cardio Rate: regular rate GI Inspection: Yes normal to inspection General: Yes no CVA tenderness and Yes other (JOHN exam performed prostate firm ) Back/Spine/Pelvis Back: no CVA tenderness Neuro General: patient oriented x3 Psych Appearance: grossly normal and well kempt Mental Status: mental status grossly normal Speech and movement: Normal speech and movement present and Clear speech present Affect: normal affect Attitude: cooperative Thought process: Normal thought process present Thought content: Normal thought content present Insight: Fair insight present (Psych) Judgement: Fair judgement present (Psych) Office Procedures Post Void Residual Post Residual Void Post Void Residual (PVR): 77 [id number] Void Residual by ultrasound Assessment & Plan Assessment & Plan (1) Elevated PSA: Code(s): R97.20 - Elevated prostate specific antigen [PSA] Category: Medical Plan Unable to obtain urine for urinalysis as patient unable to void PVR 77 mL. He currently denies any bothersome urinary issues or concerns. He reports be happy with current voiding parameters Will continue with Flomax and finasteride as prescribed; refills provided. Recent PSA results reviewed with the patient today; as noted above. Will continue with surveillance monitoring. Follow-up in 6 months with PSA and PVR; or sooner with any issues, concerns, and or questions. Orders: Orders AMB Post Void Residual by ultrasound Today R97.20 - Elevated prostate specific antigen [PSA], Z13.9 - Encounter for screening, unspecified Prostate Specific Antigen 6 Months R97.20 - Elevated prostate specific antigen [PSA] Medications: Changed From tamsulosin (Flomax) This is an increase in dosage 0.8 mg (2 x 0.4 mg) PO BEDTIME 90 days 180 caps 2RF To tamsulosin (Flomax) This is an increase in dosage 0.4 mg PO BEDTIME 90 caps 2RF 90 days Refilled finasteride 5 mg PO DAILY 90 tabs 3RF 90 days Patient Instructions: The patient had an opportunity to ask questions regarding the treatment plan. All questions were answered. Physical exam, labs, and imaging were discussed and reviewed in detail. As well as risks, benefits, and discussion of treatment choices. No major barriers to understanding were identified. The patient expressed understanding and agreement with the above treatment plan. The patient was made aware they should contact our office by phone for worsening of their current condition, the appearance of new symptoms, or with any questions or concerns. Compliance is encouraged with any medications and follow up testing that is ordered. It is a privilege to be allowed the opportunity to participate in? your urological care.? Again, if you have any questions or concerns If you have any questions or concerns please do not hesitate to contact me. The office is [phone]. This note is constructed using voice recognition software. While every effort has been made to ensure accuracy jewelry casting model maker apprentice errors may have been included. Yours sincerely, MICHELLE Dominguez Coding Level of Care Code Est Pt Level 3 (43379) Diagnoses Elevated PSA R97.20 CPT Codes Post Residual Void - PVR CPT Code: 54707-Mhdu Void Residual by ultrasound ([id number])
--- OUTSIDE RECORDS SUMMARY | 2024-09-27 10:51 | XMS_ITS ---
Author Name [facility] Organization Unknown Encounters Encounter Type Encounter Reason Primary Diagnosis Location Date Ambulatory [facility] 02/10/2024 Care Team Organization Name Specialty Phone Email Start Date End Da te [facility] [id number]
== END 2024-09-27 10:58 | disposition home or self-care (01) ==
LOC: HO.HUSH 10:27
PROVIDERS: Visit Provider Nurse Practitioner Family
DX: R97.20 Elevated prostate specific antigen [PSA] (principal)
CPT/HCPCS: 99213

== ENCOUNTER → 2024-09-27 10:27 | Outpatient (BNVA) | payer SELFPAY | PROVIDERS: Visit Provider Nurse Practitioner Family | DX: R97.20 Elevated prostate specific antigen [PSA] (principal); R35.1 Nocturia; N40.0 Benign prostatic hyperplasia without lower urinary tract symptoms; E11.9 Type 2 diabetes mellitus without complications; Z13.9 Encounter for screening, unspecified | CPT/HCPCS: 51798; 99212 ==